=== PATIENT | female | born 1960 | race Caucasian/White ===

== ENCOUNTER 2016-10-04 18:40 | Emergency (ER) | payer BC ==
[~2016-10-04] VITALS: Ht 160 cm; Wt 61.4 kg
[~2016-10-04 18:40] MED LIST: PAROXETINE HCL30 MG PO; SYMBICORT60 INHALAT IH
[2016-10-04 19:18] LABS: HEMATOCRIT 45.8 % (36.0-46.0); MCH 31.5 PG (29.0-34.0); MCHC 33.8 G/DL (30.0-36.0); MCV 93.1 FL (83-99); MEAN PLAT.VOLUME 9.7 uM^3 (9.5-12.4); PLATELET COUNT 263 K/uL (156-360); RBC DIS.WIDTH-CV 11.8 % (11.8-14.6); RBC DIS.WIDTH-SD 40.4 % (39-53); RED BLOOD COUNT 4.92 M/uL (3.80-5.20); WHITE BLOOD COUNT 5.9 K/uL (4.1-10.2)
[2016-10-04 19:21] LABS: AMPHETAMINE NEGATIVE (500 ng/mL); BARBITURATES NEGATIVE (200 ng/mL); BENZODIAZEPINES NEGATIVE (150 ng/mL); COCAINE NEGATIVE (150 ng/mL); INTERNAL CONTROLS VALID? YES; METHADONE NEGATIVE (200 ng/mL); METHAMPHETAMINE NEGATIVE (500 ng/mL); OPIATES (MORPHINE) NEGATIVE (100 ng/mL); OXYCODONE NEGATIVE (100 ng/mL); PHENCYCLIDINE NEGATIVE (25 ng/mL); PROPOXYPHENE NEGATIVE (300 ng/mL); THC CANNABINOIDS NEGATIVE (50 ng/mL); TRICYCLIC ANTIDEPRESSANTS NEGATIVE (300 ng/mL)
[2016-10-04 19:37] LABS: CHLORIDE 108 mEq/L (99-109); POTASSIUM 3.8 mEq/L (3.7-5.4); SODIUM 141 mEq/L (136-147)
[2016-10-04 19:39] LABS: GLUCOSE 101 mg/dL (70-99)
[2016-10-04 19:40] LABS: ANION GAP 11 MEQ/L (2-14)
[2016-10-04 19:42] LABS: SERUM ETHYL ALCOHOL 184 mg/dL
[2016-10-04 19:43] LABS: GFR ESTIMATE (CALCULATED) > 59 mL/min/
[2016-10-04 19:44] LABS: UREA NITROGEN (BUN) 18 mg/dL (9-23)
[2016-10-04 23:26] VITALS: BP 140/85
== END 2016-10-04 23:27 | disposition home or self-care (01) ==
LOC: EME 18:40
DX: F10.10 Alcohol abuse, uncomplicated (principal)
CPT/HCPCS: 80048; 85027; 90837; 99281; 99285; G0480